=== PATIENT | male | born 1935 | race Caucasian/White ===

== ENCOUNTER → 2016-10-06 | Outpatient (CLI) | payer MEDICARE, BC ==
[~2016-10-06] MED LIST: BENTYL20 MG PO; OMEPRAZOLE20 M1 PO; PEPCID PO; SYNTHROID; VICODIN 5/1 TAB 5/50 PO; ZOCOR; ZOFRAN ODT4 MG PO
--- NOTE | ~2016-10-06 | US5 ---
[facility] A Service of [facility] RADIOLOGY TEXT RESULTS PATIENT: VERENICE DOVE LOCATION: [facility] : 35 UNIT #: [id number] AGE: [address]: PINEDA WADSWORTH MD SEX: M ORDER DR: [id number] [place], [place] [address] [id number] O MR#: [id number] Acc #: [id number] NAME: VERENICE DOVE : 1935 SEX: M STUDY DATE/TIME: 10/06/2016 7:48 UNIT: [facility] ROOM: STUDY DESCRIPTION: US Abdominal Complete Attending Physician: Pineda Wadsworth M.D. Referring Physician: Pineda Wadsworth M.D. Ordering Physician: Pineda Wadsworth M.D. Primary Care Physician: Pineda Wadsworth M.D. MEDICAL IMAGING REPORT This report is preliminary unless electronic signature is present EXAM Abdominal ultrasound INDICATION Elevated liver enzyme levels. PROCEDURE Hoffmann-scale and Doppler imaging of the abdomen. COMPARISON None FINDINGS Pancreas is mostly obscured by bowel gas and not well seen. Liver measures 14.3 cm. No liver mass on submitted images. Gallbladder is contracted but otherwise unremarkable. Right kidney measures 11.9 cm. There is a 3.3 cm cyst in the right kidney. Common duct measures 3.0 mm. Visualized portions of the abdominal aorta and inferior vena cava unremarkable. Left kidney measures 11.7 cm. There is a 2.2 cm cyst in the left kidney. Spleen measures 12.3 cm. IMPRESSION 1. Bowel gas artifact. Pancreas is mostly obscured. 2. Bilateral renal cysts. 3. No specific finding to explain the patient's elevated liver enzyme levels. Dictated by... Parveen Fontanez M.D. THIS IS AN ELECTRONICALLY VERIFIED REPORT Parveen Fontanez M.D. at 10/08/2016 1:54 PM [facility] A Service of [facility] / [facility] RADIOLOGY TEXT RESULTS PATIENT: VERENICE DOVE LOCATION: [facility] : 35 UNIT #: [id number] AGE: [address]: PINEDA WADSWORTH MD SEX: M ORDER DR: RICKIE/ana TD: 10/06/2016 11:34 JOB #: [id number] MEDICAL IMAGING REPORT Page 1 of 1 COPY
== END | disposition home or self-care (01) ==
LOC: CWCC 07:33
DX: R94.5 Abnormal results of liver function studies (principal); N28.1 Cyst of kidney, acquired
CPT/HCPCS: 76700